=== PATIENT | female | born 1995 | race Caucasian/White ===

== ENCOUNTER 2023-11-27 20:08 | Observation (INO) | payer OTHER, SELFPAY ==
[2023-11-27 21:15] LABS: Amnisure NEGATIVE (NEGATIVE); Internal Control Within Normal Limits
[2023-11-27 21:16] LABS: Bilirubin Urine NEGATIVE (NEGATIVE); Blood Urine NEGATIVE (NEGATIVE); Clarity Urine CLEAR (CLEAR); Color Urine LT. YELLOW (YELLOW); Glucose Urine UA NEGATIVE (NEGATIVE); Ketones Urine NEGATIVE (NEGATIVE); Leukocyte Esterase Urine MODERATE (NEGATIVE); Nitrite Urine NEGATIVE (NEGATIVE); Protein Urine NEGATIVE (NEG/TRACE); Specific Gravity Urine 1.015 (1.005-1.025)
[2023-11-27 21:19] LABS: Urine Microscopic Indicated YES
[2023-11-27 21:30] LABS: Bacteria Urine MODERATE #/HPF (NONE SEEN); RBC Urine 0-2 #/HPF (0-2)
[2023-11-27 21:31] LABS: Cast Seen? NONE SEEN #/LPF (NONE SEEN); Crystals Seen? None Seen #/HPF (None Seen); Mucus Urine SMALL (NONE SEEN); Squamous Epithelial Cell Urine MANY #/LPF (NONE/RARE); Transitional Epi Cells Urine FEW #/LPF (NONE SEEN); Urine Culture Indicated YES
[2023-11-27 22:54] VITALS: BP 99/70; PULSE 72
[2023-11-27 22:55] VITALS: BP 99/70; PULSE 72; TEMP 36.7
[2023-11-28 04:27] VITALS: BP 103/56; PULSE 100
[2023-11-28 04:28] VITALS: BP 103/56; PULSE 100; TEMP 36.8
[2023-11-28 07:28] VITALS: BP 108/63; PULSE 64
== END 2023-11-28 09:40 | disposition home or self-care (01) ==
PROVIDERS: Admitting Provider Obstetrics & Gynecology; PCP Nurse Practitioner Family; Visit Provider Obstetrics & Gynecology
DX: O47.1 False labor at or after 37 completed weeks of gestation (principal); Z3A.38 38 weeks gestation of pregnancy; Z03.71 Encounter for suspected problem with amniotic cavity and membrane ruled out
CPT/HCPCS: 81001; 84112; 87086; G0378; G0379

== ENCOUNTER 2023-12-02 00:51 | Inpatient (IN) | payer OTHER, SELFPAY ==
[2023-12-02] VITALS (42 sets, daily range): BP systolic 99–128; BP diastolic 56–76; PULSE 57–110; TEMP 36.4–37.2
--- OUTSIDE RECORDS SUMMARY | 2023-12-02 00:55 | XMS_ITS | CCD ---
Author Organization [facility] Care Team Providers Care Pest Control Worker Name Role Phone MISC, DOCTOR Attending Unavailable MISC, DOCTOR Consulting Unavailable MISC, DOCTOR Admitting Unavailable Sadi Spear DDS Attending Unavailable GOYO, RENETTA Stern Primary Care Unavailab JORGE Alejo Attending Unavailable DIONY, BASILIO Admitting Unavailable DIONY, BASILIO Attending Unavailable GOYO, RENETTA Stern Primary Care Unavailab Tony HAIR, Jessy Primary Care Provider [facility] HOME SPECIALIST, Renetta Stern Unavailable JESUS MONSALVE Attending Unavailab le FLORO, HEMAL Mccabe Attending Unavailable FLORO, HEMAL Eliot Referring Unavailable FLORO, HEMAL L Attending Unavailable FLORO, HEMAL L Attending Unavailable KAMPFER, JAVIER Attending Unavailable FLORO, HEMAL L Attending Unavailable FLORO, HEMAL L Referring Unavailable KAMPFER, JAVIER Attending Unavailable FLORO, HEMAL L Attending Unavailable FLORO, HEMAL L Attending Unavailable FLORO, HEMAL L Referring Unavailable FLORO, HMEAL L Attending Unavailable FLORO, HEMAL L Attending Unavailable FLORO, HEMAL L Attending Unavailable FLORO, HEMAL L Attending Unavailable Medications Current Medications Medication Drug Class(es) Dates Sig (Normalized) Sig (Original) docusate sodium 100 mg oral capsule (3 sources) Start: 10-13-2023 End: 11-12-2023 take 1 capsule by mouth in the morning docusate sodium (Colace) 100 MG capsule Indications: Anemia during in third trimester Take 1 capsule (100 mg) by mouth in the morning and 1 capsule (100 mg) before bedtime. 180 capsule 2 10/13/2023 11/12/2023 Active escitalopram 20 mg oral tablet (8 sources) Serotonin Reuptake Inhibitor Lexapro 20 MG tablet 1 (one) time each day at the same time. Active famotidine 20 mg oral tablet (8 sources) Histamine-2 Receptor Antagonist famotidine (Pepcid) 20 MG tablet Take 20 mg by mouth if needed for heartburn or indigestion Active ferrous sulfate 325 mg delayed release oral tablet (8 sources) Start: 10-13-2023 End: 10-12-2024 take 1 tablet by mouth in the morning ferrous sulfate (Fe Tabs) 325 (65 Fe) MG EC tablet Indications: Anemia during in third trimester Take 1 tablet (325 mg) by mouth in the morning and 1 tablet (325 mg) in the evening. Take before meals. Do not crush, chew, or split.. 60 tablet 4 10/13/2023 10/12/2024 Active ondansetron 4 mg disintegrating oral tablet (8 sources) Serotonin-3 Receptor Antagonist Start: 07-07-2023 take 1 tablet by mouth every eight hours as needed ondansetron ODT (Zofran-ODT) 4 MG disintegrating tablet Take 4 mg by mouth every 8 (eight) hours if needed 07/07/2023 Active MV & Min w/FA-DHA ( GUMMIES PO) (8 sources) MV & Mi n w/FA-DHA ( GUMMIES PO) Take by mouth Active Problems Active Problems Problem Classification Problem Date Documented Date Episodic/Chronic Anxiety disorders (20 sources) Anxiety; Translations: [Anxiety disorder, unspecified] Onset: 07-20-2022 07-20-2022 Chronic Asthma (8 sources) Exacerbation of intermittent asthma; Translations: [Mild intermittent asthma with (acute) exacerbation] Onset: 07-20-2022 07-20-2022 Chronic Esophageal disorders (8 sources) Gastroesophageal reflux disease without esophagitis; Translations: [Gastro-esophageal reflux disease without esophagitis] Onset: 07-20-2022 07-20-2022 Chronic Fluid and electrolyte disorders (1 source) Dehydration; Translations: [Dehydration] Onset: 07-07-2023 Episodic Menstrual disorders (8 sources) Excessive and frequent menstruation; Translations: [Excessive and frequent menstruation with regular cycle] Onset: 07-20-2022 07-20-2022 Chronic Mood disorders (20 sources) Major depression, single episode; Translations: [Major depressive disorder, single episode, unspecified] Onset: 07-20-2022 07-20-2022 Chronic Nausea and vomiting (1 source) Nausea with vomiting, unspecified; Translations: [Nausea with vomiting, unspecified] Onset: 07-07-2023 Episodic Other nervous system disorders (8 sources) Mononeuropathy of lower limb; Translations: [Unspecified mononeuropathy of unspecified lower limb] Onset: 07-20-2022 07-20-2022 Chronic Other nutritional; endocrine; and metabolic disorders (8 sources) Hypomagnesemia; Translations: [Hypomagnesemia] Onset: 07-20-2022 07-20-2022 Chronic Other screening for suspected conditions (not mental disorders or infectious disease) (2 sources) Patient encounter status; Translations: [Encounter for screening for Streptococcus B] 11-10-2023 Episodic Substance-related disorders (16 sources) Tobacco dependence caused by cigarettes; Translations: [Nicotine dependence, cigarettes, uncomplicated] Onset: 07-20-2022 07-20-2022 Chronic Unclassified (4 sources) CONTACT W/AND (SUSP) EXPOS COVID-19; Translations: [CONTACT W/AND (SUSP) EXPOS COVID-19] Onset: 02-15-2020 Unclassified (1 source) Problem Onset: 09-14-2023 Unclassified (1 source) Cold Like Symptoms Onset: 07-07-2023 Unclassified (1 source) stomach ache Onset: 07-07-2023 Past or Other Problems Problem Classification Problem Date Documented Da te Episodic/Chronic Allergic reactions (8 sources) Eczema of lower limb; Translations: [Dermatitis, unspecified] Onset: 07-20-2022 07-20-2022 Episodic Mood disorders (8 sources) Mood disorders Onset: 12-27-2022 12-27-2022 Other gastrointestinal disorders (8 sources) Slow transit constipation; Translations: [Slow transit constipation] Onset: 07-20-2022 07-20-2022 Episodic Other and delivery including normal (12 sources) Normal labor; Translations: [Encounter for full-term uncomplicated delivery] Onset: 07-03-2019 07-20-2022 Episodic Spondylosis; intervertebral disc disorders; other back problems (8 sources) Lumbago with sciatica; Translations: [Lumbago with sciatica, unspecified side] Onset: 07-20-2022 07-20-2022 Episodic Results Test Name Value Interpretation Reference Range Facility AMNISUREon 11-27-2023 TB AMNISURE Negative NEGATIVE [facility] US OB FOLLOW UP TRANSABDOMIN AL APPROACHon 10-04-2023 US OB FOLLOW UP TRANSABDOMINAL APPROACH TITLE OF EXAM: OB Ultrasound: REASON FOR EXAM: Growth. TECHNIQUE: Grayscale and color Doppler imaging is performed. Measurements: heart rate: 163 bpm LEAH: 15.2 cm (8.9-23.7) BPD: 7.7 cm HC: 28.2 cm AC: 26.3 cm FL: 5.8 cm GA for sonogram: 30.2 wk (27.8-32.7) Cervix length: 4.0 cm ANIBAL: 12/08/2023 Weight Estimate: Weight: 1582 gm / 3 lbs, 7 oz (8710-5430 gm) [place] Normal: 1693 gm (6400-3575 gm) [place] Wt%: 31% for 30.7 wks CLINICAL SUMMARY: A single intrauterine is noted in cephalic presentation. heart is observed with a heart rate of 163 BPM. Placenta is located anteriorly. Placenta is Grade I/III Amniotic fluid volume is normal. Dictated and transcribed 10/05/23/dpd This report has been electronically signed and approved by the interpreting radiologist. Electronically Signed Tom Tucker M.D. 2023-10-05 12:47:52 Normal Not Available Glucose Glucometer (BldC) [M ass/Vol]on 09-14-2023 Glucose [Mass/Vol] 107 mg/dL High 65-99 [facility] US OB 14+ WEEKS ANATOMY SCAN on 07-27-2023 US OB 14+ WEEKS ANATOMY SCAN FINDINGS: A single, live intrauterine is present with normal cardiac rate of 160 beats per minute. Normal activity and amniotic fluid volume. Amniotic fluid index is 15 cm. Morphology is grossly normal. The cervix is long and closed, 5.1 cm. The placenta is anterior, not associated with the cervical os. The current sonographic age is 20 weeks and 5 days, based on the following measurements: BPD 4.9 cm (20 weeks, 6 days) Head Circumference 18.5 cm (20 weeks, 6 days) Abdominal Circumference 15.7 cm (20 weeks, 6 days) Femur Length 3.3 cm (20 weeks, 2 days) Presentation Breech Placenta Anterior Grade 0 Weight (g) by Percentile 32.3 % * These measurements result in an estimated date of delivery of December 09, 2023. The current estimated weight is 365 grams (0 pounds, 13 ounces). IMPRESSION: Single, live intrauterine , current sonographic age of 20 weeks and 5 days, with an estimated date of delivery of December 09, 2023 * Estimated Weight (g) by Percentile is based upon an accurate estimated age based on last menstrual period. TRANSCRIBED BY: ELECTRONICALLY SIGNED BY: Abdirizak Sotelo MD Normal Not Available CBC AND AUTO DIFFon 07-07-19 ABSOLUTE BASOPHIL 0.0 X10E9/L Normal 0.0-0.2 [facility] Comment on above: Performed By: #### C JUSTINO, CMP #### [facility] ([id number]) [address] [place] [address] 30199 ABSOLUTE NEUTROPHIL 7.2 X10E9/L High 1.5-6.6 [facility] Comment on above: Performed By: #### C JUSTINO, CMP #### [facility] ([id number]) [address] [place] [address] 14887 Basophils/100 WBC (Bld) 0.2 % Normal [facility] [place] Comment on above: Performed By: #### C JUSTINO, CMP #### [facility] ([id number]) [address] [place] [address] 12328 Eosinophils (Bld) [#/Vol] 0.0 10*3/uL Normal 0.0-0.4 [facility] Comment on above: Performed By: #### C JUSTINO, CMP #### [facility] ([id number]) [address] [place] [address] 37818 Eosinophils/100 WBC (Bld) 0.1 % Normal [facility] [place] Comment on above: Performed By: #### C BCA, CMP #### [facility] ([id number]) [address] [place] [address] 15100 Erythrocyte distribution width (RBC) [Ratio] 13.6 % Normal 11.5-15.0 [facility] Comment on above: Performed By: #### C JUSTINO, CMP #### [facility] ([id number]) [address] [place] [address] 46567 Hematocrit (Bld) [Volume fraction] 33.8 % Low 35-47 [facility] [place] Comment on above: Performed By: #### C JUSTINO, CMP #### [facility] ([id number]) [address] [place] [address] 91586 Hemoglobin (Bld) [Mass/Vol] 11.6 g/dL Low 11.7-15.5 [facility] [place] Comment on above: Performed By: #### C JUSTINO, CMP #### [facility] ([id number]) [address] [place] [address] 26952 Lymphocytes (Bld) [#/Vol] 0.4 10*3/uL Low 1.0-3.5 [facility] Comment on above: Performed By: #### C JUSTINO, CMP #### [facility] ([id number]) [address] [place] [address] 85754 Lymphocytes/100 WBC (Bld) 5.0 % Normal [facility] [place] Comment on above: Performed By: #### C JUSTINO, CMP #### [facility] ([id number]) [address] [place] [address] 90179 MCH (RBC) [Entitic mass] 29.8 pg Normal 27-34 [facility] [place] Comment on above: Performed By: #### C JUSTINO, CMP #### [facility] ([id number]) [address] [place] [address] 99581 MCHC (RBC) [Mass/Vol] 34.5 g/dL Normal 32-36 [facility] [place] Comment on above: Performed By: #### C BCA, CMP #### [facility] ([id number]) [address] [place] [address] 13426 MCV (RBC) [Entitic vol] 87 fL Normal 80-100 [facility] [place] Comment on above: Performed By: #### C BCA, CMP #### [facility] ([id number]) [address] [place] [address] 07276 Monocytes (Bld) [#/Vol] 0.3 10*3/uL Normal 0-0.9 [facility] [place] Comment on above: Performed By: #### C JUSTINO, CMP #### [facility] ([id number]) [address] [place] [address] 05580 Monocytes/100 WBC (Bld) 3.7 % Normal [facility] [place] Comment on above: Performed By: #### C JUSTINO, CMP #### [facility] ([id number]) [address] [place] [address] 92545 Neutrophils/100 WBC (Bld) 91.0 % Normal [facility] [place] Comment on above: Performed By: #### C BCA, CMP #### [facility] ([id number]) [address] [place] [address] 93430 Platelet mean volume (Bld) [Entitic vol] 8.8 fL Normal 7-12 [facility] [place] Comment on above: Performed By: #### C BCA, CMP #### [facility] ([id number]) [address] [place] [address] 36806 Platelets (Bld) [#/Vol] 245 10*3/uL Normal 150-450 [facility] [place] Comment on above: Performed By: #### C BCA, CMP #### [facility] ([id number]) [address] [place] [address] 18005 RBC COUNT 3.90 X10E12/L Normal 3.80-5.20 [facility] [place] Comment on above: Performed By: #### C BCA, CMP #### [facility] ([id number]) [address] [place] [address] 65809 WBC (Bld) [#/Vol] 7.9 10*3/uL Normal 4.0-11.0 [facility] Comment on above: Performed By: #### C BCA, CMP #### [facility] ([id number]) [address] [place] [address] 66223 COMPREHENSIVE METABOLIC PANE Mario 07-07-2023 Albumin [Mass/Vol] 3.4 g/dL Normal 3.2-5.3 [facility] Comment on above: Performed By: #### C BCA, CMP #### [facility] ([id number]) [address] [place] [address] 92841 ALP [Catalytic activity/Vol] 49 U/L Normal 39-130 [facility] Comment on above: Performed By: #### C BCA, CMP #### [facility] ([id number]) [address] [place] [address] 90246 ALT [Catalytic activity/Vol] 13 U/L Normal 0-31 [facility] [place] Comment on above: Performed By: #### C BCA, CMP #### [facility] ([id number]) [address] [place] [address] 30327 Anion gap [Moles/Vol] 4 mmol/L Low 5-15 [facility] [place] Comment on above: Performed By: #### C BCA, CMP #### [facility] ([id number]) [address] [place] [address] 04556 AST [Catalytic activity/Vol] 19 U/L Normal 0-41 [facility] Comment on above: Performed By: #### C BCA, CMP #### [facility] ([id number]) [address] [place] [address] Bilirubin [Mass/Vol] 0.8 mg/dL Normal 0.3-1.2 [facility] Comment on above: Performed By: #### C BCA, CMP #### [facility] ([id number]) [address] [place] [address] 10692 Calcium [Mass/Vol] 8.0 mg/dL Low 8.5-10.5 [facility] Comment on above: Performed By: #### C BCA, CMP #### [facility] ([id number]) [address] [place] [address] 09535 Chloride [Moles/Vol] 103 mmol/L Normal 98-109 [facility] Comment on above: Performed By: #### C BCA, CMP #### [facility] ([id number]) [address] [place] [address] 24699 CO2 [Moles/Vol] 21 mmol/L Low 22-32 [facility] Comment on above: Performed By: #### C BCA, CMP #### [facility] ([id number]) [address] [place] [address] 28984 Creatinine [Mass/Vol] 0.56 mg/dL Normal 0.40-1.00 [facility] Comment on above: Result Comment: METH OD TRACEABLE TO IDMS STANDARD Performed By: #### C BCA, CMP #### [facility] ([id number]) [address] [place] [address] 32184 eGFR (CKD-EPI) NON-RACE DEPENDENT >90 Normal >59 [facility] Comment on above: Result Comment: Reported eGFR is based on the CKD-EPI 2020 equation that does not use a race coefficient. Performed By: #### C BCA, CMP #### [facility] ([id number]) [address] [place] [address] 79449 Glucose [Mass/Vol] 95 mg/dL Normal 65-99 [facility] Comment on above: Performed By: #### C BCA, CMP #### [facility] ([id number]) [address] [place] [address] 42449 Potassium [Moles/Vol] 3.3 mmol/L Low 3.5-5.0 [facility] Comment on above: Performed By: #### C BCA, CMP #### [facility] ([id number]) [address] [place] [address] 06035 Protein [Mass/Vol] 6.9 g/dL Normal 6.0-8.0 [facility] Comment on above: Performed By: #### C BCA, CMP #### [facility] ([id number]) [address] [place] [address] 17004 Sodium [Moles/Vol] 128 mmol/L Low 134-146 [facility] Comment on above: Performed By: #### C BCA, CMP #### [facility] ([id number]) [address] [place] [address] 29520 Urea nitrogen [Mass/Vol] 7 mg/dL Normal 5-23 [facility] Comment on above: Performed By: #### C BCA, CMP #### [facility] ([id number]) [address] [place] [address] 29573 SARS/FLU A+B/RSV by NAAT/[facility] 07-07-2023 SARS/FLU A+B/RSV by NAAT/Molecular FLU A PCR Negative (qualifier value) FLU B PCR Negative (qualifier value) RSV by PCR Negative (qualifier value) SARS CoV 2 Not detected (qualifier value) NOTE The Xpert Xpress SARS-CoV-2/Flu/RSV Plus test is a rapid, multiplexed real-time RT-PCR test intended for the simultaneous qualitative detection and differentiation of SARS-CoV-2, influenza A, influenza B and respiratory syncytial virus (RSV) viral RNA from individuals suspected of respiratory viral infection consistent with COVID-19 by their healthcare provider. This test has not been validated in asymptomatic patients. The Xpert Xpress SARS-CoV-2 test is intended for use by qualified and trained operators who are performing tests using either Gene[employer] DX or Gene[employer] systems and is limited to laboratories that meet the CLIA requirements to perform high and moderate complexity tests. The Xpert Xpress SARS-CoV-2/Flu/RSV Plus is only for use under the Food and Drug Administration's Emergency Use Authorization. Results are for the simultaneous detection and differentiation of SARS-CoV-2, influenza A, influenza B and RSV nucleic acids in clinical specimens. SARS-CoV-2, influenza A, influenza B and RSV RNA identified by this test are generally detectable in upper respiratory samples during the acute phase of infection. Positive results are indicative of the presence of the identified virus, but do not rule out bacterial infection or co-infection with other pathogens not detected by this test. Clinical correlation with patient history and other diagnostic information is necessary to determine patient infection status. The agent detected may not be the definite cause of disease. Negative results do not preclude SARS-CoV-2, influenza A, influenza B and RSV infection and should not be used as the sole basis for treatment or other patient management decisions. Negative results must be combined with clinical observations, patient history and epidemiological information. An Invalid result may occur with specimen-associated inhibition unable to be resolved with specimen repeat. Fact Sheet for Healthcare Providers: https://www.fda.gov/ media/857702/downloa d Fact Sheet for Patients: https://www.fda.gov/ media/140092/downloa d Normal [facility] Comment on above: Performed By: #### C OVFLR #### [facility] ([id number]) [address] [place] [address] 15457 URN MACROSCOPIC NURon 2023 BILIRUBIN HIRA Negative Normal NEG [facility] Comment on above: Performed By: #### N UM #### [facility] ([id number]) [address] [place] [address] 05686 BLOOD/HGB HIRA Negative Normal NEG [facility] Comment on above: Performed By: #### N UM #### [facility] ([id number]) [address] [place] [address] GLUCOSE HIRA Negative Normal NEG [facility] Comment on above: Performed By: #### N UM #### [facility] ([id number]) [address] [place] [address] 76094 KETONES HIRA >=160 Abnormal NEG [facility] Comment on above: Performed By: #### N UM #### [facility] ([id number]) [address] [place] [address] [place] [address] LEUKOCYTE ESTERASE HIRA Small Abnormal NEG [facility] Comment on above: Performed By: #### N UM #### [facility] ([id number]) [address] [place] [address] 25048 NITRITE HIRA Negative Normal NEG [facility] Comment on above: Performed By: #### N UM #### [facility] ([id number]) [address] [place] [address] 94618 PH HIRA 6.0 Normal 5.0-8.5 [facility] Comment on above: Performed By: #### N UM #### [facility] ([id number]) [address] [place] [address] 33769 PROTEIN HIRA Negative Normal NEG [facility] Comment on above: Performed By: #### N UM #### [facility] ([id number]) [address] [place] [address] [place] [address] SPECIFIC GRAVITY HIRA 1.020 Normal 1.003-1.035 [facility] Comment on above: Performed By: #### N UM #### [facility] ([id number]) [address] [place] [address] 94266 UROBILINOGEN HIRA 2.0 eu/dL High <1.1 [facility] Comment on above: Performed By: #### N UM #### [facility] ([id number]) [address] [place] [address] 92946 US OB < 14 WEEKS EARLYon US OB < 14 WEEKS EARLY EXAMINATION: For service ultrasound. HISTORY: Amenorrhea. COMPARISON: None TECHNIQUE: Endovaginal examination pelvis. FINDINGS: Uterus measures 10.0 x 7.2 x 6.2 in the long, AP and transverse dimension. The uterus is retroverted. There is a single IUP with estimated gestational age based on crown-rump length of 8 weeks 2 days +/-1-week with a heart rate of 158 bpm. A yolk sac is identified. The right ovary is 2.0 x 1.5 x 1.6 cm Left ovary measures 2.0 x 1.0 x 1.3 cm. No free fluid IMPRESSION: SINGLE IUP WITH ESTIMATED GESTATIONAL AGE BASED ON CROWN-RUMP LENGTH OF 8 WEEKS 2 DAYS +/-1-WEEK WITH A HEART RATE OF 158 BPM. ANATOMY IS NOT ASSESSED DUE TO EARLY GESTATIONAL AGE ELECTRONICALLY SIGNED BY: Paul Easley MD Normal Not Available Comprehensive Metabolic Pane [facility] 06-18-2021 Albumin [Mass/Vol] 4.4 g/dL Normal 3.6-5.1 [facility] Comment on above: Performed By: #### C MP, TSH reflex FT4 #### [facility] [address] [place], [place] [id number] Albumin/Globulin [Mass ratio] 1.7 {ratio} Normal 1.0-2.5 [facility] Special[facility] Comment on above: Performed By: #### C MP, TSH reflex FT4 #### [facility] [address] [place], [place] [id number] ALP [Catalytic activity/Vol] 57 U/L Normal 35-119 [facility] Comment on above: Performed By: #### C MP, TSH reflex FT4 #### [facility] [address] [place], [place] [id number] ALT [Catalytic activity/Vol] 11 U/L Normal 6-33 [facility] Comment on above: Result Comment: 01/07 Female reference range changed. Performed By: #### C MP, TSH reflex FT4 #### [facility] [address] [place], [place] [id number] Anion gap [Moles/Vol] 19 mmol/L Normal 12-20 [facility] Comment on above: Result Comment: [place] ctive 02/12/2019 reference range changed. Performed By: #### C MP, TSH reflex FT4 #### [facility] [address] [place], [place] [id number] AST [Catalytic activity/Vol] 16 U/L Normal 9-34 [facility] [facility] Comment on above: Performed By: #### C MP, TSH reflex FT4 #### [facility] [address], [place] [id number] BUN/CREA 18 Ratio Normal 6-22 [facility] Comment on above: Performed By: #### C MP, TSH reflex FT4 #### [facility] [address], [place] [id number] Calcium [Mass/Vol] 9.2 mg/dL Normal 8.6-10.2 [facility] Comment on above: Performed By: #### C MP, TSH reflex FT4 #### [facility] [address], [place] [id number] Chloride [Moles/Vol] 106 mmol/L Normal 98-107 [facility] Comment on above: Performed By: #### C MP, TSH reflex FT4 #### [facility] [address], [place] [id number] CO2 [Moles/Vol] 20 mmol/L Normal 20-31 [facility] Comment on above: Performed By: #### C MP, TSH reflex FT4 #### [facility] [address], [place] [id number] Creatinine [Mass/Vol] 0.7 mg/dL Normal 0.6-1.4 [facility] Comment on above: Performed By: #### C MP, TSH reflex FT4 #### [facility] [address], [place] [id number] eGFRAA 124 mL/min/1.73m2 Normal >60 [facility] Comment on above: Performed By: #### C MP, TSH reflex FT4 #### [facility] [address], [place] [id number] eGFRNAA 102 mL/min/1.73m2 Normal >60 [facility] Comment on above: Performed By: #### C MP, TSH reflex FT4 #### [facility] [address], [place] [id number] Globulin (S) [Mass/Vol] 2.6 g/dL Normal 1.9-3.7 [facility] Comment on above: Performed By: #### C MP, TSH reflex FT4 #### [facility] [address], [place] [id number] Glucose [Mass/Vol] 76 mg/dL Normal 65-99 [facility] Comment on above: Result Comment: For FASTING Glucose --- ADA reference ranges: Normal 65-99 mg/dl Prediabetes 100-125 Diabetes >/= 126 Performed By: #### C MP, TSH reflex FT4 #### [facility] [address], [place] [id number] Potassium [Moles/Vol] 3.8 mmol/L Normal 3.5-5.5 [facility] Comment on above: Performed By: #### C MP, TSH reflex FT4 #### [facility] [address], [place] [id number] Protein [Mass/Vol] 7.0 g/dL Normal 6.1-8.1 [facility] Comment on above: Performed By: #### C MP, TSH reflex FT4 #### [facility] [address], [place] [id number] Sodium [Moles/Vol] 141 mmol/L Normal 135-146 [facility] Comment on above: Performed By: #### C MP, TSH reflex FT4 #### [facility] [address], [place] [id number] TBIL <0.3 Normal [facility] Comment on above: Performed By: #### C MP, TSH reflex FT4 #### [facility] [address], [place] [id number] Urea nitrogen [Mass/Vol] 13 mg/dL Normal 7-25 [facility] Comment on above: Performed By: #### C MP, TSH reflex FT4 #### [facility] [address], [place] [id number] TSH w/ Reflex to Free T4on 0 5-12-2022 TSH 1.430 uIU/mL Normal 0.400-4.500 [facility]rapist Comment on above: Performed By: #### C MP, TSH reflex FT4 #### [facility] [address] [place], [place] [id number] Covid-19 PCR (CVDTB)on Covid-19 PCR NOT DETECTED Normal NOT DETECTED [facility] Comment on above: Result Comment: This test is not yet approved or cleared by the [place] FDA. When there are no FDA-approved or cleared tests available, and other criteria are met, FDA can make tests available under an emergency access mechanism called an Emergency Use Authorization (EUA). The EUA for this test is supported by the [place] of Health and Human Service's (HHS's) declaration that circumstances exist to justify the emergency use of in vitro diagnostics for the detection and/or diagnosis of the virus that causes COVID-19. This EUA will remain in effect (meaning this test can be used) for the duration of the COVID-19 declaration justifying emergency of IVDs, unless it is terminated or revoked by FDA (after which the test may no longer be used). Performed By: #### C VDTB #### [facility] [address] [address] Shruti David EUA Statement SEE BELOW Normal [facility] Comment on above: Result Comment: This test is not yet approved or cleared by the [place] FDA. When there are no FDA-approved or cleared tests available, and other criteria are met, FDA can make tests available under an emergency access mechanism called an Emergency Use Authorization (EUA). The EUA for this test is supported by the [place] of Health and Human Service?s (HHS?s) declaration that circumstances exist to justify the emergency use of in vitro diagnostics for the detection and/or diagnosis of the virus that causes COVID-19. This EUA will remain in effect (meaning this test can be used) for the duration of the COVID-19 declaration justifying emergency of IVDs, unless it is terminated or revoked by FDA (after which the test may no longer be used). When diagnostic testing is negative, the possibility of a false negative should be considered in the context of a patients recent exposures and the presence of clinical signs and symptoms consistent with SARS-CoV-2. Performed By: #### C TB #### [facility] [address] [place], [place] [address] Shruti David Basic Metabolic Panelon 10-08 Anion gap [Moles/Vol] 15 mmol/L Normal 9-15 [facility] Comment on above: Performed By: #### B MP #### [facility] [address] [place] [address] Calcium [Mass/Vol] 9.1 mg/dL Normal 8.5-9.9 [facility] Comment on above: Performed By: #### B MP #### [facility] [address] [place] [address] Chloride [Moles/Vol] 106 mmol/L Normal 95-107 [facility] Comment on above: Performed By: #### B MP #### [facility] [address] [place] [address] CO2 [Moles/Vol] 21 mmol/L Normal 20-31 [facility] Comment on above: Performed By: #### B MP #### [facility] [address] [place] [address] Creatinine [Mass/Vol] 0.66 mg/dL Normal 0.50-0.90 [facility] Comment on above: Performed By: #### B MP #### [facility] [address] [place] [address] GFR/1.73 sq M predicted among blacks MDRD (S/P/Bld) [Vol rate/Area] mL/min/{1.73_m2} Normal >60 [facility] Comment on above: Result Comment: >60 mL/min/1.73m2 EGFR, calc. for ages 18 and older using the MDRD formula (not corrected for weight), is valid for stable renal function. Performed By: #### B MP #### [facility] [address] [place] [address] GFR/1.73 sq M.predicted MDRD (S/P/Bld) [Vol rate/Area] mL/min/{1.73_m2} Normal >60 [facility] Comment on above: Result Comment: >60 mL/min/1.73m2 EGFR, calc. for ages 18 and older using the MDRD formula (not corrected for weight), is valid for stable renal function. Performed By: #### B MP #### [facility] [address] [place] [address] Glucose [Mass/Vol] 101 mg/dL Critically high 70-99 [facility] Comment on above: Performed By: #### B MP #### [facility] [address] [place] [address] Potassium [Moles/Vol] 3.5 mmol/L Normal 3.4-4.9 [facility] Comment on above: Performed By: #### B MP #### [facility] [address] [place] [address] Sodium [Moles/Vol] 142 mmol/L Normal 135-144 [facility] Comment on above: Performed By: #### B MP #### [facility] [address] [place] [address] Urea nitrogen [Mass/Vol] 9 mg/dL Normal 6-20 [facility] Comment on above: Performed By: #### B MP #### [facility] [address] [place] [address] CBC With Platelet and Differ entialon 10-19-2019 Basophils (Bld) [#/Vol] 0.0 10*3/uL Normal 0.0-0.2 [facility] Comment on above: Performed By: #### C BCWD #### [facility] [address] [place] [address] Basophils/100 WBC (Bld) 0.7 % Normal [facility] Comment on above: Performed By: #### C BCWD #### [facility] [address] [place] [address] Eosinophils (Bld) [#/Vol] 0.2 10*3/uL Normal 0.0-0.7 [facility] Comment on above: Performed By: #### C BCWD #### [facility] [address] [place] [address] Eosinophils/100 WBC (Bld) 2.9 % Normal [facility] Comment on above: Performed By: #### C BCWD #### [facility] [address] [place] [address] Erythrocyte distribution width (RBC) [Ratio] 13.7 % Normal 11.5-14.5 [facility] Comment on above: Performed By: #### C BCWD #### [facility] [address] [place] [address] Hematocrit (Bld) [Volume fraction] 39.9 % Normal 37.0-47.0 [facility] Comment on above: Performed By: #### C BCWD #### [facility] [address] [place] [address] Hemoglobin (Bld) [Mass/Vol] 13.0 g/dL Normal 12.0-16.0 [facility] Comment on above: Performed By: #### C BCWD #### [facility] [address] [place] [address] Lymphocytes (Bld) [#/Vol] 2.4 10*3/uL Normal 1.0-4.8 [facility] Comment on above: Performed By: #### C BCWD #### [facility] [address] [place] [address] Lymphocytes/100 WBC (Bld) 36.7 % Normal [facility] Comment on above: Performed By: #### C BCWD #### [facility] [address] [place] [address] MCH (RBC) [Entitic mass] 28.9 pg Normal 27.0-31.3 [facility] Comment on above: Performed By: #### C BCWD #### [facility] [address] [place] [address] MCHC (RBC) [Mass/Vol] 32.7 % Low 33.0-37.0 [facility] Comment on above: Performed By: #### C BCWD #### [facility] [address] [place] [address] MCV (RBC) [Entitic vol] 88.6 fL Normal 82.0-100.0 [facility] Comment on above: Performed By: #### C BCWD #### [facility] [address] [place] [address] Monocytes (Bld) [#/Vol] 0.5 10*3/uL Normal 0.2-0.8 [facility] Comment on above: Performed By: #### C BCWD #### [facility] [address] [place] [address] Monocytes/100 WBC (Bld) 7.9 % Normal [facility] Comment on above: Performed By: #### C BCWD #### [facility] [address] [place] [address] Neutrophils (Bld) [#/Vol] 3.4 10*3/uL Normal 1.4-6.5 [facility] Comment on above: Performed By: #### C BCWD #### [facility] [address] [place] [address] Neutrophils/100 WBC (Bld) 51.8 % Normal [facility] Comment on above: Performed By: #### C BCWD #### [facility] [address] [place] [address] Platelets (Bld) [#/Vol] 282 10*3/uL Normal 130-400 [facility] Comment on above: Performed By: #### C BCWD #### [facility] [address] [place] [address] RBC (Bld) [#/Vol] 4.50 10*6/uL Normal 4.20-5.40 [facility] Comment on above: Performed By: #### C BCWD #### [facility] [address] [place] [address] WBC (Bld) [#/Vol] 6.5 10*3/uL Normal 4.8-10.8 [facility] Comment on above: Performed By: #### C BCWD #### [facility] [address] [place] [address] TSH w/out Reflexon 0 TSH Qn 1.460 uIU/mL Normal 0.440-3.86 [facility] Comment on above: Performed By: #### T SH #### [facility] [address] [place] [address] Vitamin Don 10-19-2019 Vitamin D 33.9 ng/mL Normal 30.0-100.0 [facility] Comment on above: Result Comment: (30- 100 ng/mL) Optimum Level This assay accurately quantifies the sum of vitamin D3, 25-Hydroxy and vitamin D2, 25-Hyroxy. Performed By: #### V ITD #### [facility] [address] [place] [address] Vital Signs Date Time Vital Sign Value Performing Clinician Amrit fontana 11-17-2023 08:43-0400 Body mass index (BMI) [Ratio] 36.31 kg/m2 Hemal [facility] Work Phone: [facility] 11-17-2023 08:43-0400 Body weight 92.99 kg Hemal [facility] Work Phone: [facility] 11-17-2023 08:43-0400 Diastolic blood pressure 80 mm[Hg] Hemal [facility] Work Phone: [facility] 11-17-2023 08:43-0400 Systolic blood pressure 118 mm[Hg] [facility] Work Phone: [facility] 11-10-2023 08:51-0400 Body mass index (BMI) [Ratio] 36.14 kg/m2 [facility] Work Phone: [facility] 11-10-2023 08:51-0400 Body weight 92.53 kg Hemal Warner CNM Work Phone: [facility] 11-10-2023 08:51-0400 Diastolic blood pressure 80 mm[Hg] Hemal Webero CNM Work Phone: [facility] 11-10-2023 08:51-0400 Systolic blood pressure 118 mm[Hg] Hemal Warner CNM Work Phone: [facility] Encounters Encounter Date Encounter Type Care Provider Facility Start: 11-28-2023 End: 11-28-2023 Telephone encounter Hemal Webero CNM Work Phone: [facility] Start: 11-27-2023 End: 11-27-2023 Clinisync Result Encounter Hardik Obed DO Work Phone: [facility] Unsolicited Start: 11-27-2023 End: 11-27-2023 Clinisync Result Encounter Hardik Obed DO Work Phone: [facility] Unsolicited Start: 11-17-2023 End: 11-17-2023 Bamboo flowsheet Hemal Eliot Webero CNM Work Phone: [facility] Start: 11-17-2023 End: 11-17-2023 Bamboo flowsheet Hemal Webero CNM Work Phone: [facility] Start: 11-17-2023 End: 11-17-2023 Subsequent care visit Hemal Webero CNM Work Phone: [facility] Comment on above: Encounter for superv ision of other normal , third trimester (Primary Dx) Start: 11-17-2023 End: 11-17-2023 ambulatory HEMAL WEBERO Not Available Start: 11-10-2023 End: 11-10-2023 Bamboo flowsheet Hemal Eliot Webero CNM Work Phone: [facility] Start: 11-10-2023 End: 11-10-2023 Bamboo flowsheet Hemal L Floro CN Work Phone: [facility] Start: 11-10-2023 End: 11-10-2023 Subsequent care visit Hemal Webero CNM Work Phone: [facility] Comment on above: Encounter for superv ision of other normal , third trimester (Primary Dx); screening for streptococcus B Start: 11-10-2023 End: 11-10-2023 ambulatory HEMAL L FLORO Not Available Start: 11-02-2023 End: 11-02-2023 ambulatory HEMAL L FLORO Not Available Start: 10-13-2023 End: 10-13-2023 ambulatory HEMAL L FLORO Not Available Start: 10-04-2023 End: 10-04-2023 ambulatory HEMAL L FLORO Not Available Start: 09-20-2023 End: 09-20-2023 ambulatory HEMAL L FLORO Not Available Start: 09-14-2023 End: 09-14-2023 ambulatory [facility] Start: 08-23-2023 End: 08-23-2023 ambulatory HEMAL L FLORO Not Available Start: 08-09-2023 End: 08-09-2023 ambulatory JAVIER KAMPFER Not Available Start: 07-27-2023 End: 07-27-2023 ambulatory HEMAL L FLORO Not Available Start: 07-12-2023 End: 07-12-2023 ambulatory JAVIER KAMPFER Not Available Start: 07-07-2023 End: 07-07-2023 [facility] Start: 06-29-2023 End: 06-29-2023 ambulatory HEMAL L FLORO Not Available Start: 05-31-2023 End: 05-31-2023 ambulatory HEMAL L FLORO Not Available Start: 05-03-2023 End: 05-03-2023 ambulatory HEMAL L FLORO Not Available Start: 12-27-2022 End: 12-27-2022 ambulatory JESUS MONSALVE Not Available Start: 05-24-2022 ambulatory Sadi Spear [facility] Start: 02-15-2020 End: 02-15-2020 Patient encounter procedure [facility] Facility: Procedures Date Procedure Procedure Detail Performing Clinician Start: 11-27-2023 AMNISURE Hardik bundy DO Work Phone: Plan of Treatment Date Care Activity Detail Author Start: 12-06-2023 End: 12-06-2023 Patient encounter procedure 12/06/2023 8:30 AM EDT Routine [facility] [address] [place] [id number] Hemal Warner, CNM [address] [place] [address] [facility] Start: 11-28-2023 End: 11-28-2023 Patient encounter procedure 11/28/2023 4:00 PM EDT Routine [facility] [address] [place] [id number] Hemal Warner, CNM [address] [place] [address] [facility] Start: 11-17-2023 End: 11-17-2023 Patient encounter procedure [facility] Comment on above: Arrived Start: 11-10-2023 End: 11-09-2024 STREPTOCCOUS, GROUP B CULTURE STREPTOCCOUS, GROUP B CULTURE Lab Routine screening for streptococcus B Expected: 11/10/2023 (Approximate), Expires: 11/09/2024 [facility] Work Phone: Comment on above: Expected: 11/10/2023 (Approximate), Expires: 11/09/2024 Start: 11-10-2023 End: 11-10-2023 Patient encounter procedure 11/10/2023 8:45 AM EDT Routine [facility] [address] [place] [id number] Hemal Warner, CNM [address] [place] [address] Arrived [facility] Comment on above: Arrived Start: 10-09-2023 Influenza vaccination Influenza Vacc ine (#1) [facility] Immunizations Immunization Date Immunization Notes Care Provider Fa cility 11-12-2021 influenza, injectabl e, quadrivalent, preservative free Hemal Floro CNM Work Phone: [facility] 11-12-2021 influenza virus vacc ine, unspecified formulation Hemal Floro CN Work Phone: [facility] 10-24-2019 influenza, injectabl e, quadrivalent, preservative free Hemal Floro CNM Work Phone: [facility] 04-12-2019 tetanus toxoid, redu reginaldo diphtheria toxoid, and acellular pertussis vaccine, adsorbed Hemal Floro CN Work Phone: [facility] 10-10-2018 influenza, injectabl e, quadrivalent, preservative free Hemal Floro CNM Work Phone: [facility] 11-21-2017 influenza, injectabl e, quadrivalent, preservative free Hemal Floro CNM Work Phone: [facility] 11-18-2017 Influenza, injectabl e, Madin [place] Canine Kidney, preservative free, quadrivalent Hemal Floro CNM Work Phone: [facility] 09-17-2016 influenza, injectabl e, quadrivalent, preservative free Hemal Floro CNM Work Phone: [facility] 11-17-2015 meningococcal polysaccharide (groups A, C, Y and W-135) diphtheria toxoid conjugate vaccine (MCV4P) [facility] Work [facility]: [facility] 03-30-2012 hepatitis A vaccine, pediatric/adolescent dosage, 2 dose schedule Hemal Floro CN Work Phone: [facility] 03-30-2012 human papilloma viru s vaccine, quadrivalent Hemal Floro CNM Work Phone: [facility] 11-30-2011 hepatitis A vaccine, pediatric/adolescent dosage, 2 dose schedule Hemal Mary Elleno CN Work Phone: [facility] 11-26-2011 human papilloma viru s vaccine, quadrivalent Hemal Mary Elleno CN Work Phone: [facility] 09-24-2011 hepatitis A vaccine, pediatric/adolescent dosage, 2 dose schedule Hemal Floro CN Work Phone: [facility] 09-24-2011 human papilloma viru s vaccine, quadrivalent Hemal Mary Elleno CN Work Phone: [facility] 11-11-2010 diphtheria, tetanus toxoids and acellular pertussis vaccine Hemal Mary Elleno CN Work Phone: [facility] 11-11-2010 tetanus toxoid, redu reginaldo diphtheria toxoid, and acellular pertussis vaccine, adsorbed Hemal Mary Elleno CN Work Phone: [facility] 09-12-2003 diphtheria, tetanus toxoids and acellular pertussis vaccine Hemal Mary Elleno CN Work Phone: [facility] 09-12-2003 Diphtheria, tetanus toxoids and acellular pertussis vaccine, and poliovirus vaccine, inactivated Hemal Mary Elleno CN Work Phone: [facility] 09-12-2003 measles, mumps and r ubella virus vaccine Hemal Mary Elleno CN Work Phone: [facility] 09-12-2003 measles, mumps, rube lla, and varicella virus vaccine Hemal Mary Elleno CN Work Phone: [facility] 09-12-2003 poliovirus vaccine, inactivated Hemal Mary Elleno CN Work Phone: [facility] 09-12-2003 varicella virus vaccine Savita moira Mary Elleno CN Work Phone: [facility] 10-02-1999 diphtheria, tetanus toxoids and acellular pertussis vaccine, Haemophilus influenzae type b conjugate, and poliovirus vaccine, inactivated ([id number]) Hemal [facility] Work Phone: [facility] 10-02-1999 measles, mumps and r ubella virus vaccine Hemal [facility] Work Phone: [facility] 11-05-1998 DTP-Haemophilus infl uenzae type b conjugate vaccine Hemal [facility] Work Phone: [facility] 11-05-1998 hepatitis B vaccine, pediatric or pediatric/adolescent dosage [facility] Work Phone: [facility] 1997 diphtheria, tetanus toxoids and acellular pertussis vaccine, Haemophilus influenzae type b conjugate, and poliovirus vaccine, inactivated ([id number]) Hemal [facility] Work Phone: [facility] 1997 diphtheria, tetanus toxoids and acellular pertussis vaccine, unspecified formulation Hemal [facility] Work Phone: [facility] 1997 haemophilus influenz ae type b vaccine, PRP-OMP conjugate Hemal [facility] Work Phone: [facility] 1997 poliovirus vaccine, inactivated [facility] Work Phone: [facility] 1997 diphtheria, tetanus toxoids and acellular pertussis vaccine, Haemophilus influenzae type b conjugate, and poliovirus vaccine, inactivated ([id number]) Hemal [facility] Work Phone: [facility] 1997 diphtheria, tetanus toxoids and acellular pertussis vaccine, unspecified formulation [facility] Work Phone: [facility] 1997 haemophilus influenz ae type b conjugate and Hepatitis B vaccine Hemal [facility] Work Phone: [facility] 1997 hepatitis B vaccine, pediatric or pediatric/adolescent dosage Hemal Mary Elleno [facility] Work Phone: [facility] 1997 poliovirus vaccine, inactivated [facility]al [facility] Work Phone: [facility] 1997 hepatitis B vaccine, pediatric or pediatric/adolescent dosage Hemal Warner NIALLGiorgio Work Phone: [facility] Payers Date Payer Category Payer Private Health Insurance [id number] 2023 Unknown [id number] 1997 Unknown [id number] 2.16.84 [id number] 1997 Unknown [id number] 2.16.8 40.1.226074.3.579.2.1286 1997 Unknown [id number] 2.16.8 40.1.767889.3.579.2.1286 1997 Unknown [id number] 2.16.84 0.1.018173.3.579.2.1259 1997 Unknown [id number] 2.16.84 0.1.073391.3.579.2.1259 1997 Unknown [id number] 2.16.84 0.1.325105.3.579.2.9 1997 Unknown [id number] 2.16.84 0.1.592377.3.579.2.1259 1997 Unknown [id number] 2.16.84 0.1.982912.3.579.2.1259 1997 Unknown [id number] 2.16.84 0.1.436675.3.579.2.1259 1997 Unknown [id number] 2.16.84 0.1.186199.3.579.2.1258 1997 Unknown [id number] 2.16.84 0.1.882538.3.579.2.9 1997 Unknown [id number] 2.16.84 0.1.570728.3.579.2.9 1997 Unknown [id number] 2.16.84 0.1.598270.3.579.2.1259 1997 Unknown [id number] 2.16.84 0.1.740177.3.579.2.9 1997 Unknown [id number] 2.16.84 0.1.524432.3.579.2.9 1997 Unknown [id number] 2.16.84 0.1.827846.3.579.2.1258 1997 Unknown [id number] 2.16.84 0.1.805933.3.579.2.9 1997 Unknown [id number] 2.16.84 0.1.626682.3.579.2.9 1997 Unknown [id number] 2.16.840 .1.339931.3.579.2.1259 1959 Unknown [id number] 1959 Unknown [id number] Social History Date Type Detail Facility Start: 07-12-2023 Tobacco smoking stat [facility] Ex-smoker [facility] End: 11-19-2022 History of tobacco use Current smoker [facility] End: 11-19-2022 History of tobacco use Cigarette Smoker [facility] Start: 07-12-2023 Tobacco use and exposure Smoke less tobacco non-user [facility] Start: 08-09-2023 Alcoholic beverage intake Ex-drinker (finding) [facility] Start: 12-27-2022 End: 08-09-2023 [facility] of Social function [facility] Start: 12-27-2022 End: 08-09-2023 Tobacco use panel [facility] Start: 07-12-2023 Alcohol Comment caffeine: 1 cu ps per day coffee; tea, pop [facility] Start: 03-17-2023 [facility] Start: 1997 Sex assigned at Not on file [facility] Telephone encounter Note 11-28-2023 Telephone Encounter - Khadra Choi - 11/28/2023 2:53 PM EDT Note Date & Type Note Facility 11-28-2023 Telephone encount er Note vm left that pt is very tired after her hospital stay and cancelled her appt.Feels the same, 2:25pm [facility] Note 11-28-2023 Telephone Encounter - Khadra Choi - 11/28/2023 2:53 PM EDT Note Date & Type Note Facility 11-28-2023 Miscellaneous Notes Formattin g of this note might be different from the original. vm left that pt is very tired after her hospital stay and cancelled her appt.Feels the same, 2:25pm documented in this encounter [facility] History of Present illness Narrative 11-17-2023 Hemal Warner CNM - 11/17/2023 8:45 AM EDT Note Date & Type Note Facility 11-17-2023 History of Presen t illness Narrative Subjective No chief complaint on file. Remberto Arthur is a 28 y.o. at 37w0d with a working estimated date of delivery of 12/08/2023, by Last Menstrual Period who presents for a routine visit. She denies vaginal bleeding, leakage of fluid, decreased movements, or contractions. 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 Labs reviewed. GBS negative Expected mode of delivery Follow up in 1 week for a routine visit. documented in this encounter [facility] History of Present illness Narrative 11-10-2023 Hemal Warner CNM - 11/10/2023 8:45 AM EDT Note Date & Type Note Facility 11-10-2023 History of Presen t illness Narrative Subjective No chief complaint on file. Remberto Arthur is a 28 y.o. at 36w0d with a working estimated date of delivery of 12/08/2023, by Last Menstrual Period who presents for a routine visit. She denies vaginal bleeding, leakage of fluid, decreased movements, or contractions. OB History Para Term AB Living 2 1 1 1 SAB IAB Ectopic Multiple Live Births 1 # Outcome Date GA Lbr Marcello/2nd Weight Sex Type Anes PTL Lv 2 Current 1 Term 07/03/19 37w0d 7 lb 1 oz F Vag-Spont MILLER Her is complicated by: anxiety Objective Physical Exam weight: 204 lb Expected Total Weight Gain: 11 lb-19 lb Pregravid BMI: 32.07 BP: 118/80 Urine protein-negative Urine glucose-negative Assessment/Plan Continue vitamin. Labs reviewed. GBS taken. Expected mode of delivery Follow up in 1 week for a routine visit. documented in this encounter [facility] Evaluation note Note Date & Type Note Facility Evaluation note Diagnosis Encounter for supervision of other normal , third trimester- Primary screening for streptococcus B screening for Streptococcus B documented in this encounter [facility] Evaluation note Note Date & Type Note Facility Evaluation note Diagnosis Encounter for supervision of other normal , third trimester- Primary documented in this encounter [facility] Summary Purpose Family History No Family History Records FoundNo Family History Records FoundNo Family History Records FoundNo Family History Records FoundNo Family History Records FoundNo Family History Records Found Advance Directives No Advanced Directives Records FoundNo Advanced Directives Records FoundNo Advanced Directives Records FoundNo Advanced Directives Records FoundNo Advanced Directives Records FoundNo Advanced Directives Records Found Additional Source Comments INFORMATION SOURCE (unrecogn ized section and content) DATE CREATED AUTHOR 10/19/2019 [facility] DATE CREATED AUTHOR AUTHOR'S ORGANIZ ATION 02/21/2020 [facility] DATE CREATED AUTHOR AUTHOR'S ORGANIZ ATION 06/20/2021 [facility] dical Specialist DATE CREATED AUTHOR AUTHOR'S ORGANIZ ATION 05/25/2022 [facility] DATE CREATED AUTHOR AUTHOR'S ORGANIZ ATION 09/16/2023 [facility] DATE CREATED AUTHOR AUTHOR'S ORGANIZ ATION 11/19/2023 [facility] dical Specialists EPIC Care Teams (unrecognized sec tion and content) Pest Control Worker Relationship Specialty Start Date End Date Jessy Lozano MD [address] [facility] [place] [address] PCP - General Family Medicine 07/20/22 Renetta Nance NP [address] [facility] [place] [address] Nurse Practitioner Family Medicine 07/20/22 Pest Control Worker Relationship Specialty Start Date End Date Jessy Lozano MD [address] [facility] [place] [address] PCP - General Family Medicine 07/20/22 Renetta Nance NP [address] [facility] [place] [address] Nurse Practitioner Family Medicine 07/20/22 Pest Control Worker Relationship Specialty Start Date End Date Jessy Lozano MD [address] [facility] [place] [address] PCP - General Family Medicine 07/20/22 Renetta Nance NP [address] [facility] [place] [address] Nurse Practitioner Family Medicine 07/20/22 Pest Control Worker Relationship Specialty Start Date End Date Jessy Lozano MD [address] [facility] [place], [place] [id number] PCP - General Family Medicine 07/20/22 Renetta Nance NP [address] [facility] [place] [id number] Nurse Practitioner Family Medicine 07/20/22 FOR RECORDS PERTAINING TO PATIENTS WHO ARE OR HAVE BEEN ENROLLED IN A CHEMICAL DEPENDENCY/SUBSTANCEABUSE PROGRAM, SOME INFORMATION MAY BE OMITTED. This clinical summary was aggregated from multiple sources. Caution should be exercised in using it in the provision of clinical care. This summary normalizes information from multiple sources, and as a consequence, information in this document may materially change the coding, format and clinical context of patient data. In addition, data may be omitted in some cases. CLINICAL DECISIONS SHOULD BE BASED ON THE PRIMARY CLINICAL RECORDS. [facility] [facility]. provides no warranty or guarantee of the accuracy or completeness of information in this document.
[2023-12-02 01:44] LABS: Amnisure POSITIVE (NEGATIVE); Internal Control Within Normal Limits
[2023-12-02 01:46] LABS: Bilirubin Urine NEGATIVE (NEGATIVE); Blood Urine MODERATE (NEGATIVE); Clarity Urine CLEAR (CLEAR); Color Urine LT. YELLOW (YELLOW); Glucose Urine UA NEGATIVE (NEGATIVE); Ketones Urine NEGATIVE (NEGATIVE); Leukocyte Esterase Urine TRACE (NEGATIVE); Nitrite Urine NEGATIVE (NEGATIVE); Protein Urine NEGATIVE (NEG/TRACE)
[2023-12-02 01:53] LABS: Urine Microscopic Indicated YES
[2023-12-02 01:56] LABS: Bacteria Urine MODERATE #/HPF (NONE SEEN); Cast Seen? NONE SEEN #/LPF (NONE SEEN); Crystals Seen? None Seen #/HPF (None Seen); Mucus Urine MODERATE (NONE SEEN); RBC Urine 0-2 #/HPF (0-2); Squamous Epithelial Cell Urine FEW #/LPF (NONE/RARE); Urine Culture Indicated YES
[2023-12-02] MEDS: LACTATED RINGER'S SOLUTION 1,000 ML 999 ML IV ×2 (03:42→04:43)
[2023-12-02 03:43] LABS: Hematocrit 35.5 % (36.0-48.0); Hemoglobin 11.3 g/dL (12.0-16.0); Mean Corpuscular HGB Conc 31.8 g/dL (29.9-35.2); Mean Corpuscular Hemoglobin 27.3 pg (26.7-34.0); Mean Corpuscular Volume 85.7 fL (81.0-99.0); Mean Platelet Volume 11.5 fL (9.5-13.5); Platelet Count 286 10^3/uL (150-450); Red Blood Count 4.14 10^6/uL (4.20-5.40); Red Cell Distribution Width 14.7 % (11.0-15.0); White Blood Count 12.4 10^3/uL (4.0-11.0)
[2023-12-02] MEDS: ROPIVACAINE HCL/PF 400 MG/200 ML PREMIX 10 MG EPIDURAL (04:37)
[2023-12-02] MEDS: OXYTOCIN/0.9 % SODIUM CHLORIDE 10 UNITS/500 ML PLAST..BAG 6 UNIT IV (05:23)
[2023-12-02] MEDS: OXYTOCIN/0.9 % SODIUM CHLORIDE 20 UNITS/1,000 ML PLAST..BAG 125 UNIT IV (09:17)
--- NOTE | 2023-12-02 10:27 | PM.OBPRCVD ---
Procedure events: Labor Augmentation and Meconium Stained Fluid Induction method: none Delivery augmentation: pitocin Delivery monitor: external FHT and external uterine Route of delivery: Episiotomy Description: none L&D Laceration Description: none Estimated blood loss (mL): 400 Anesthesia type: Epidural Disposition: no change Infant Delivery date: 12/02/23 Gender: female presentation: vertex Placental delivery description: Spontaneous cord description: Loose, Reduced and Around Body x1 heart rate - 1 minute: 100 bpm or Greater respiratory effort - 1 minute: Spontaneous/Strong Cry muscle tone - 1 minute: Active Movement reflex response - 1 minute: Minimal Response color - 1 minute: Pallor or Cyanosis total score - 1 minute: 7 heart rate - 5 minute: 100 bpm or Greater respiratory effort - 5 minute: Spontaneous/Strong Cry muscle tone - 5 minute: Active Movement reflex response - 5 minute: Prompt Response color - 5 minute: Pallor or Cyanosis total score - 5 minute: 8 heart rate - 10 minute: 100 bpm or Greater respiratory effort - 10 minute: Spontaneous/Strong Cry muscle tone - 10 minute: Active Movement reflex response - 10 minute: Prompt Response color - 10 minute: Bluish Hands or Feet total score - 10 minute: 9
[2023-12-02] MEDS: IBUPROFEN 400 MG TABLET 800 MG PO ×2 (12:26→20:49)
--- NOTE | 2023-12-02 13:26 | SWNOTE1 ---
SW was consulted due to mental health. SW spoke to nurse and pt has anxiety, depression, and PTSD from previous relationship. She is now on an anti-depressant and does see psychologist. SW met with pt and her 4 year old daughter, father of baby, her sister, and her father were in room. Pt did voice they have everything they need at home for baby. Pt voiced she has really good support at home as well. She is seeing a psychologist, usually about 1x every 3 months, but can see more often if needed. She last saw them in October, but did request to see them once she leaves the hospital. 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 At that point she reached out to her PCP and she was able to get her in to inpt psych. She is aware of the sign of post and she will reach out to her support system. At this point she stated she is feeling good. No further concerns at this time. Pt has the resources she needs available to her.
[2023-12-02 15:19] LABS: Amphetamine Screen Urine NEGATIVE (NEGATIVE); Barbiturates Screen Urine NEGATIVE (NEGATIVE); Benzodiazepines Screen Urine NEGATIVE (NEGATIVE); Buprenorphine Screen Urine NEGATIVE (NEGATIVE); Cannabinoid Screen Urine NEGATIVE (NEGATIVE); Cocaine Screen Urine NEGATIVE (NEGATIVE); Methadone Screen Urine NEGATIVE (NEGATIVE); Methamphetamines Screen Urine NEGATIVE (NEGATIVE); Opiate Screen Urine NEGATIVE (NEGATIVE); Oxycodone Screen Urine NEGATIVE (NEGATIVE); Phencyclidine Screen Urine NEGATIVE (NEGATIVE); Tricyclic Antidepressant Urine NEGATIVE (NEGATIVE)
--- NOTE | 2023-12-02 16:52 | PC.NURSE ---
LC into room. Reviewed education, handouts given for support. Assisted to latch infant in football hold. Areola is edematous, much more than at delivery. Difficult for nipple to florencio, even with stimulation. Difficult latching. Pt has short nipples, large pendulous breasts. Discussed use of nipple shield and pt agreeable to nipple shield. Handout and demo for proper placement given. Infant latches on second attempt, colostrum noted in shield when baby pulls off. Mom pleased with feed. To call as needs. Denies needs currently.
--- NOTE | 2023-12-02 20:13 | W.PC.ACHO ---
Registration Status: ADM IN Primary Language: Maltese Preferred Language: Maltese Report at 1915 on delivery procedures, pain meds, brestfeeding & IV status Active Medications Generic Name Dose Route Start Last Admin Trade Name Sanjuana PRN Reason Stop Dose Admin Al Hydroxide/Mg Hydroxide 2,400 mg 12/02/23 10:39 Magnesium Hydroxide 2,400 Mg/10 Ml Oral.Susp PO Q6H PRN Dyspepsia Benzocaine/Menthol 1 applic 12/02/23 10:39 Benzocaine/Menthol 85 Gram [place] Bottle TOPICAL Q2H PRN Pain Carboprost Tromethamine 250 mcg 12/02/23 02:34 Carboprost Tromethamine 250 Mcg/Ml 1 Ml Vial IM 12/04/23 02:34 Q15M PRN Bleeding Diphenhydramine HCl 25 mg 12/02/23 02:34 Diphenhydramine Hcl 50 Mg/Ml Vial IV 12/03/23 02:38 Q6H PRN Itching Diphtheria/Pertussis/Tetanus Vacc 0.5 ml 12/04/23 09:00 Adacel Diph,Pertuss(Acell),Tet Vac/Pf 0.5 Ml Adult Syringe IM 12/04/23 09:01 .ONCE ONE Docusate Sodium 100 mg 12/03/23 09:00 Docusate Sodium 100 Mg Capsule PO BID GABRIELLA Ephedrine Sulfate 5 mg 12/02/23 02:34 Ephedrine Sulfate 50 Mg/Ml Vial IV 12/03/23 02:38 Q5M PRN Blood Pressure - Low Escitalopram Oxalate 20 mg 12/02/23 22:00 Escitalopram 10 Mg Tablet PO QHS GABRIELLA Fentanyl Citrate 100 mcg 12/02/23 02:34 Fentanyl Citrate/Pf 100 Mcg/2 Ml Vial EPIDURAL ONCE PRN epidural Fentanyl Citrate 100 mcg 12/02/23 02:34 Fentanyl Citrate/Pf 100 Mcg/2 Ml Vial EPIDURAL ONCE PRN epidural Tranexamic Acid 1,000 mg/ 110 mls @ 440 mls/hr 12/02/23 02:34 Sodium Chloride IV 12/04/23 02:34 ONCE PRN Uterine Bleeding Lactated Ringer's 1,000 mls @ 125 mls/hr 12/02/23 03:00 12/02/23 09:00 Lactated Ringers IV Infused .Q8H GABRIELLA Infusion Oxytocin/Sodium Chloride 10 units in 500 mls @ 6 mls/hr 12/02/23 02:45 12/02/23 09:17 Pitocin 10 Unit/500 Ml-Ns IV Infused TITR GABRIELLA Infusion Protocol 2 MILLIUNIT/MIN Ropivacaine/Sodium Chloride 400 mg in 200 mls @ 6 mls/hr 12/02/23 02:45 12/02/23 04:37 Naropin 0.2% 400 Mg/200 Ml Bag EPIDURAL 10 mls/hr Q24H GABRIELLA Administration Ibuprofen 800 mg 12/02/23 11:30 12/02/23 12:26 Ibuprofen 400 Mg Tablet PO 800 mg Q8H GABRIELLA Administration Lidocaine 5 ml 12/02/23 02:34 Lidocaine Viscous 2% 15 Ml Solution TOPICAL 12/04/23 02:37 ONCE PRN Pain Lidocaine 1 ml 12/02/23 02:34 Lidocaine Hcl 1% 200 Mg/20 Ml Mdv INJ 12/04/23 02:37 ONCE PRN Pain Lidocaine 5 ml 12/02/23 02:34 Lidocaine Hcl 2% Pf 100 Mg/5 Ml Vial INJ 12/03/23 02:38 Q1H PRN Anesthesia Measles/Mumps/Rubella Vaccine Live 0.5 ml 12/04/23 09:00 Measles,Mumps,Rubella Vacc/Pf 0.5 Ml Vial SQ 12/04/23 09:01 .ONCE ONE Methylergonovine Maleate 0.2 mg 12/02/23 02:34 Methylergonovine Maleate 0.2 Mg/Ml Ampule IM 12/04/23 02:34 ONCE PRN Uterine Contractility/Contract Methylergonovine Maleate 0.2 mg 12/02/23 02:34 Methylergonovine Maleate 0.2 Mg Tablet PO 12/04/23 02:34 Q4H PRN Uterine Contractility/Contract Misoprostol 600 mcg 12/02/23 02:34 Misoprostol 100 Mcg Tablet PO 12/04/23 02:34 ONCE PRN Uterine Bleeding Misoprostol 800 mcg 12/02/23 02:34 Misoprostol 100 Mcg Tablet SL 12/04/23 02:34 ONCE PRN Uterine Bleeding Misoprostol 1,000 mcg 12/02/23 02:34 Misoprostol 100 Mcg Tablet MS 12/04/23 02:34 ONCE PRN Uterine Bleeding Nalbuphine HCl 10 mg 12/02/23 02:34 Nalbuphine Hcl 10 Mg/Ml Ampule IV Q3H PRN Pain Naloxone HCl 0.4 mg 12/02/23 02:34 Naloxone Hcl 0.4 Mg/Ml Vial IV 12/03/23 02:38 ONCE PRN Opiate Reversal Naloxone HCl 0.4 mg 12/02/23 10:39 Naloxone Hcl 0.4 Mg/Ml Vial IV ONCE PRN Opiate Reversal Ondansetron HCl 4 mg 12/02/23 02:34 Ondansetron Pf 4 Mg/2 Ml Vial IV Q6H PRN Nausea And Vomiting Ondansetron HCl 4 mg 12/02/23 02:34 Ondansetron 4 Mg Rapdis Tablet SL Q6H PRN Nausea And Vomiting Oxytocin 10 unit 12/02/23 02:34 Oxytocin 10 Unit/Ml Vial IM 12/04/23 02:34 ONCE PRN Bleeding Senna 17.2 mg 12/02/23 20:00 Sennosides 8.6 Mg Tablet PO QHS PRN Constipation Simethicone 80 mg 12/02/23 10:39 Simethicone 80 Mg Tab.Chew PO QID PRN Abdominal Distention Temazepam 15 mg 12/02/23 22:00 Temazepam 15 Mg Capsule PO QHS PRN Sleep Witch Samina/Glycerin 1 pad 12/02/23 10:39 Glycerin/Witch Samina Pads TOPICAL Q2H PRN Pain Diet Category Date Time Status Regular Consistency Diet Diet 12/02/23 10:40 Active Consults Category Date Time Status Consult to Anesthesiology Routine Cons 12/02/23 Ordered Consult to Service Center Appraiser Routine Cons 12/02/23 Ordered IV Insertion/Site Date of IV Line Insertion [20g 12/02/23 left Hand] IV Insertion Time [20g left 02:52 Hand] Neurology Patient orientation (short person,place,time,situation list) Respiratory Oxygen Delivery Method Room Air Oxygen Delivery Method Room Air Oxygen Delivery Method Room Air Bowels Bowel Pattern No Bowel Movement Renal Bladder Pattern Continent Catheter Urinary Catheter Date of 12/02/23 Insertion [Urethral] Urinary Catheter Time of 05:12 Insertion [Urethral] Date Urinary Catheter Removed 12/02/23
[2023-12-02] MEDS: ESCITALOPRAM 10 MG TABLET 20 MG PO (22:33)
[2023-12-03 00:10] VITALS: BP 117/54; PULSE 65; TEMP 36.5
[2023-12-03 06:22] LABS: Basophils Percent Auto 0.3 % (0.2-2.0); Eosinophils Absolute Auto 0.2 10^3/uL (0.0-0.7); Eosinophils Percent Auto 1.3 % (0.9-7.0); Hematocrit 27.4 % (36.0-48.0); Hemoglobin 8.7 g/dL (12.0-16.0); Immature Granulocytes Abs Auto 0.08 10^3/uL (0.00-0.03); Immature Granulocytes Pct Auto 0.7 % (0.0-0.5); Lymphocytes Absolute Auto 3.2 10^3/uL (1.2-3.8); Lymphocytes Percent Auto 27.8 % (20.5-60.0); Mean Corpuscular HGB Conc 31.8 g/dL (29.9-35.2); Mean Corpuscular Hemoglobin 27.6 pg (26.7-34.0); Monocytes Percent Auto 8.3 % (1.7-12.0); Neutrophils Absolute Auto 7.1 10^3/uL (1.4-6.5); Neutrophils Percent Auto 61.6 % (43.0-75.0); Platelet Count 209 10^3/uL (150-450); Red Blood Count 3.15 10^6/uL (4.20-5.40); White Blood Count 11.5 10^3/uL (4.0-11.0)
[2023-12-03] MEDS: IBUPROFEN 400 MG TABLET 800 MG PO (06:43)
[2023-12-03 07:55] VITALS: BP 106/64; PULSE 57
--- NOTE | 2023-12-03 10:01 | P.OBPN_ITS ---
OB - PN: Subj Subjective Patient comments: no complaints Aguilar status: doing well Aguilar feeding status: exclusively Exam Constitutional Vital Signs, click to edit/add: Last Vital Signs Temp 97.7 F 12/03/23 00:10 Pulse 57 L 12/03/23 07:55 Resp 18 12/03/23 07:57 BP 106/64 12/03/23 07:55 O2 Del Method Room Air 12/03/23 07:57 Documenting provider has reviewed patient's vital signs: yes Common normals: no apparent distress, average body habitus, oriented x3, no henderson itations, healthy appearing, alert and well nourished Orientation/consciousness: Yes awake, Yes oriented to person, Yes oriented to place and Yes oriented to time HENMT Common normals: normocephalic Eye Common normals: EOMs intact bilaterally Neck & C-Spine Common normals: full ROM and no lymphadenopathy Lymph Lymphatic: no lymphadenopathy noted Chest Common normals: inspection of chest normal Respiratory Common normals: normal respiratory effort Effort & inspection: able to speak in complete sentences Cardio Common normals: regular rate and regular rhythm Rate: regular rate Rhythm: regular rhythm GI Common normals: Normal to inspection, nondistended, normoactive bowel sounds present Inspection: normal to inspection Common normals: no CVA tenderness Back & Pelvis Common normals: no CVA tenderness Extremity Common normals: normal to inspection Neuro Common normals: oriented x3 Sensorium/orientation: awake, alert, oriented to person, oriented to place and oriented to time Psych Common normals: mental status grossly normal Results Labs Labs: Short CBC 12/03/23 Range/Units 06:15 WBC 11.5 H (4.0-11.0) 10^3/uL Hgb 8.7 L (12.0-16.0) g/dL Hct 27.4 L (36.0-48.0) % Plt Count 209 (150-450) 10^3/uL Urinary Catheter Management Urinary Catheter Management Urethral: Cath placed during this visit: yes Urethral indwelling: No Insertion date: 12/02/23 Insertion time: 05:12 OB - PN: A/P Plan - Vaginal Delivery day: 1 Plan: routine care Time Spent with Patient Time: Total time spent is greater than 50% in coordination of care (as documented) at patient's floor/unit and/or counseling patient: Total time spent with greater than 50% in coordination of care (as documented) at patient's floor/unit and/or counseling patient: less than 15 minutes
== END 2023-12-03 12:15 | disposition home or self-care (01) | DRG 807 ==
PROVIDERS: Admitting Provider Midwife; PCP Nurse Practitioner Family; Visit Provider Midwife
DX: O99.344 Other mental disorders complicating childbirth (principal); Z37.0 Single live birth; O77.0 Labor and delivery complicated by meconium in amniotic fluid; F32.A Depression, unspecified; Z3A.39 39 weeks gestation of pregnancy
CPT/HCPCS: 36415; 59050; 59410; 80307; 81001; 84112; 85025; 85027; 86850; 86900; 86901; 87086; J2795